=== PATIENT | male | born 1965 | race American Indian/Alaskan Native ===

== ENCOUNTER 2019-05-26 12:17 | Emergency (ER) | payer SELFPAY ==
--- NOTE | 2019-05-26 12:34 | Event Note ---
ED Screening Note Date of service: 05/26/19 Time: 12:31 ED Screening Note: 53 yo male present for lac to head s/p accidental injury at work No loss of consciousness no fall no neuro deficit This initial assessment/diagnostic orders/clinical plan/treatment(s) is/are subject to change based on patients health status, clinical progression and re- assessment by fellow clinical providers in the ED. Further treatment and workup at subsequent clinical providers discretion. Patient/guardian urged not to elope from the ED as their condition may be serious if not clinically assessed and managed. Initial orders include: staple to head acc eval
[2019-05-26 17:34] VITALS: BP 140/82
--- NOTE | 2019-05-26 17:34 | Emergency Department Report ---
ED Head Trauma HPI - General Chief complaint: Wound/Laceration Stated complaint: HEAD INJURY AT WORK Time Seen by Provider: 05/26/19 17:22 Source: patient Mode of arrival: Ambulatory Limitations: No Limitations - History of Present Illness Initial comments: 53-year-old F [place] male was at work when he stood up striking his head on a pipe resulting in a laceration and bleeding. Reports having a dull throbbing pain to his head at the time of injury which continues to aggravate. He reports no loss of consciousness. No neck pain. MD Complaint: head injury -: Sudden Mechanism of Injury: unsure Place: work Radiation: none Severity: mild Quality: dull Consistency: constant Other Injuries: none Associated Symptoms: denies: confusion, amnesia, repetitive questioning, vision changes, nausea, vomiting, vertigo, syncope, numbness, weakness, tingling, neck pain - Related Data Allergies/Adverse reactions: Allergies Allergy/AdvReac Type Severity Reaction Status Date / Time No Known Allergies Allergy Unverified 07/25/15 18:15 ED Review of Systems ROS: Stated complaint: HEAD INJURY AT WORK Other details as noted in HPI Comment: All other systems reviewed and negative ED Past Medical Hx - Past Medical History Previous Medical History?: Yes Hx Hypertension: Yes Hx Diabetes: Yes Hx Liver Disease: Yes Additional medical history: high cholestrol. pericarditis - Surgical History Past Surgical History?: Yes Additional Surgical History: right hand surgery - Social History Smoking Status: Never Smoker Substance Use Type: None ED Physical Exam - General Limitations: No Limitations General appearance: alert, in no apparent distress - Head Head exam: Present: normocephalic - Expanded Head Exam Expanded Head exam: Present: laceration 1 - Arc laceration full-thickness to this region with small flap and skin tear noted. No skull depression. - Eye Eye exam: Present: normal appearance, PERRL, EOMI. Absent: nystagmus Pupils: Present: normal accommodation, other (Negative funduscopic examination) - ENT ENT exam: Present: normal exam, mucous membranes moist - Neck Neck exam: Present: normal inspection, full ROM - Respiratory Respiratory exam: Present: normal lung sounds bilaterally. Absent: respiratory distress, wheezes, rales, chest wall tenderness, accessory muscle use, decreased breath sounds - Cardiovascular Cardiovascular Exam: Present: regular rate, normal rhythm. Absent: systolic murmur, diastolic murmur, rubs, gallop - GI/Abdominal GI/Abdominal exam: Present: soft, normal bowel sounds. Absent: tenderness, guarding, rebound, hyperactive bowel sounds, hypoactive bowel sounds - Rectal Rectal exam: Present: deferred - Extremities Exam Extremities exam: Present: normal inspection - Back Exam Back exam: Present: normal inspection, full ROM. Absent: CVA tenderness (R), CVA tenderness (L) - Neurological Exam Neurological exam: Present: alert, oriented X3, CN II-XII intact - Psychiatric Psychiatric exam: Present: normal affect, normal mood - Skin Skin exam: Present: warm, dry, intact, normal color. Absent: rash ED Course Vital Signs 05/26/19 05/26/19 12:26 17:33 Temperature 97.8 F Pulse Rate 64 82 Respiratory 18 18 Rate Blood Pressure 139/80 Blood Pressure 140/82 [Left] O2 Sat by Pulse 100 99 Oximetry - Medical Decision Making [place] coma scale 15. No hematoma. No skull crepitance or stepoff. No Funk sign. No raccoon eyes. No fluid from nose or ears. No nasal septal hematoma. No open wounds. No cervical spine tenderness. Risks of CT radiation far outweigh any risks of intracranial hemorrhage. Given instructions regarding supportive care including pain meds as needed, return precautions, follow-up with primary physician. Patient is alert and oriented x3 cranial nerves all intact ambulatory with no limitation good memory recall adamantly denies loss of consciousness. Reports that the triage report is inaccurate and is trying to have it redacted from his chart. Critical care attestation.: If time is entered above; I have spent that time in minutes in the direct care of this critically ill patient, excluding procedure time. ED Disposition Clinical Impression: Scalp laceration, Head injury Disposition: [id number] TO HOME OR SELFCARE Is pt being admited?: No Does the pt Need Aspirin: No Condition: Stable Instructions: Laceration (ED), Minor Head Injury (ED) Additional Instructions: Please be sure to follow-up for suture removal in 5 days. Keep wound clean and dry as we discussed Referrals: JUDE ESQUIVEL MD [Staff Physician] - 3-5 Days Forms: Work/School Release Form(ED)
== END 2019-05-26 17:33 | disposition home or self-care (01) ==
LOC: ED 12:17
DX: S01.01XA Laceration without foreign body of scalp, initial encounter (principal); I10 Essential (primary) hypertension; E11.9 Type 2 diabetes mellitus without complications; K76.9 Liver disease, unspecified; E78.00 Pure hypercholesterolemia, unspecified; I31.9 Disease of pericardium, unspecified; Z98.890 Other specified postprocedural states; W22.8XXA Striking against or struck by other objects, initial encounter; Y93.89 Activity, other specified; Y92.89 Other specified places as the place of occurrence of the external cause; Y99.8 Other external cause status
CPT/HCPCS: 99282